=== PATIENT | female | born 1950 | race Caucasian/White ===

== ENCOUNTER 2016-09-19 17:09 | Emergency (ER) | payer MEDICARE, OTHER ==
[2016-09-19] MEDS ORDERED: ASPIRIN CHEW 81 MG TABLET PO STA (17:22)
[2016-09-19] MEDS ORDERED: ASPIRIN CHEW 81 MG TABLET ONE (17:28)
== END 2016-09-19 21:08 | disposition home or self-care (01) ==
DX: R07.89 Other chest pain (principal); E83.52 Hypercalcemia; I10 Essential (primary) hypertension
CPT/HCPCS: 36415; 71010; 80053; 83690; 84484; 85025; 85379; 93005; 93010; 99284; A9270